=== PATIENT | female | born 1985 | race Caucasian/White ===

== ENCOUNTER 2017-11-27 18:55 | Emergency (ER) | payer SELFPAY ==
[2017-11-27] MEDS ORDERED: KETOROLAC TROMETHAMINE 60 MG/2 ML SDV IM ONE (22:41)
[2017-11-27 22:49] LABS: APPEARANCE,URINE SLIGHTLY-CLOUDY; BILIRUBIN,URINE NEGATIVE (NEGATIVE); COLOR,URINE YELLOW; GLUCOSE, URINE NEGATIVE (NEGATIVE); KETONES,URINE NEGATIVE (NEGATIVE); LEUKOCYTE ESTERASE,URINE MODERATE (NEGATIVE); NITRITE,URINE NEGATIVE (NEGATIVE); PROTEIN,URINE NEGATIVE (NEGATIVE); URINE SPECIFIC GRAVITY 1.021; UROBILINOGEN,URINE NEGATIVE mg/dL (<2.0)
[2017-11-27] MEDS ORDERED: PHENAZOPYRIDINE HCL 200 MG TABLET PO ONE (23:23)
[2017-11-27] MEDS ORDERED: CEPHALEXIN 500 MG CAPSULE PO ONE (23:23)
[2017-11-27] MEDS ORDERED: HYDROCODONE/ACETAMINOPHEN 5-325 MG (6 TAB/ER DISP) PO PRN (23:27)
--- NOTE | 2017-11-27 23:27 | ER Document Report ---
ED General - General Chief Complaint: Urinary Problem Stated Complaint: URINARY PAIN/HEADACHE Time Seen by Provider: 11/27/17 21:08 Mode of Arrival: Ambulatory Information source: Patient Notes: Patient is an otherwise healthy 32-year-old female who presents with dysuria 3 days. Patient also reports intermittent headache for the last 2 days. Patient reports that the headache feels like 1 of her typical headaches, states she took Tylenol a few times with some relief. Patient currently rates headache 1 out of 5 on the pain scale. Patient reports that she has a history of urinary tract infections and that her dysuria feels similar to this. Patient denies any fever, nausea, vomiting or diarrhea. TRAVEL OUTSIDE OF THE [place] IN LAST 30 DAYS: No - Related Data Allergies/Adverse Reactions: No Known Allergies Allergy (Unverified 01/27/11 12:57) Past Medical History - General Information source: Patient - Social History Smoking Status: Never Smoker Chew tobacco use (# tins/day): No Frequency of alcohol use: None Drug Abuse: None Family History: Reviewed & Not Pertinent Patient has suicidal ideation: No Patient has homicidal ideation: No - Medical History Medical History: Negative Renal/ Medical History: Denies: Hx Peritoneal Dialysis Surgical Hx: Negative - Immunizations Hx Diphtheria, Pertussis, Tetanus Vaccination: Yes Review of Systems - Review of Systems Constitutional: No symptoms reported EENT: No symptoms reported Cardiovascular: No symptoms reported Respiratory: No symptoms reported Gastrointestinal: No symptoms reported Genitourinary: No symptoms reported Female Genitourinary: See HPI Musculoskeletal: No symptoms reported Skin: No symptoms reported Hematologic/Lymphatic: No symptoms reported Neurological/Psychological: Headaches Physical Exam - Vital signs Vitals: Temp Pulse Resp BP Pulse Ox 99.0 F 83 16 127/81 H 98 11/27/17 19:11 11/27/17 19:11 11/27/17 19:11 11/27/17 19:11 11/27/17 19:11 - Notes Notes: PHYSICAL EXAMINATION: GENERAL: Well-appearing, well-nourished and in no acute distress. HEAD: Atraumatic, normocephalic. EYES: Pupils equal round extraocular movements intact, conjunctiva are normal. ENT: Nares patent NECK: Normal range of motion LUNGS: No respiratory distress ABD: Abdomen soft, nontender. Musculoskeletal: Normal range of motion NEUROLOGICAL: Normal speech, normal gait. PSYCH: Normal mood, normal affect. SKIN: Warm, Dry, normal turgor, no rashes or lesions noted. Course - Re-evaluation Re-evalutation: Patient was given 60 mg of Toradol IM for her low back pain and headache. Patient has complete resolution of her symptoms after medication. Urinalysis reveals small blood and moderate leukocyte esterase. Patient will be placed on Keflex and Pyridium and will be discharged home in stable condition. Patient is agreeing to this plan of care. Urine will be sent for culture. - Vital Signs Vital signs: Temp Pulse Resp BP Pulse Ox 97.6 F 81 13 105/60 98 11/27/17 23:37 11/27/17 23:37 11/27/17 23:37 11/27/17 23:37 11/27/17 23:37 - Laboratory Laboratory results interpreted by me: 11/27/17 21:14 Urine Blood SMALL H Ur Leukocyte Esterase MODERATE H Discharge - Discharge Clinical Impression: Urinary tract infection Qualifiers: Urinary tract infection type: site unspecified Hematuria presence: without hematuria Qualified Code(s): N39.0 - Urinary tract infection, site not specified Condition: Stable Disposition: HOME, SELF-CARE Additional Instructions: URINARY TRACT INFECTION: Your evaluation indicates that you have a urinary tract infection. This is due to germs growing in the bladder. This is a common problem. This infection usually responds quickly to antibiotics. Your antibiotic should be taken exactly as prescribed. Drink plenty of fluids -- three to four quarts a day. Occasionally, a bladder anesthetic will be prescribed to help stop the feeling of urgency until the antibiotic has a chance to clear the infection. This may cause your urine to be dark orange. Certain urine infections require a culture. If the doctor obtained a culture, the results will be back in two days. You should call to see if a change in treatment is needed. A repeat urinalysis after you finish treatment is often recommended. The physician will let you know if further testing is required. Call the doctor if you develop fever, chills, flank pain, inability to urinate, or blood in the urine. ANTIBIOTIC THERAPY: You have been given an antibiotic prescription. It's important that you take all the medication, unless instructed otherwise by your physician. Failure to complete the entire course can result in relapse of your condition. Common side effects of antibiotics include nausea, intestinal cramping, or diarrhea. Women may develop vaginal yeast infections, and babies can get yeast (thrush) in the mouth following the use of antibiotics. Contact your physician if you develop significant side effects from this medication. Allergy to this antibiotic can result in hives, wheezing, faintness, or itching. If symptoms of allergy occur, stop the medication and call the doctor. CEPHALEXIN: The antibiotic you've been prescribed is a member of the cephalosporin class. This type of antibiotic covers a wide variety of infections, including those of the skin, lungs, and urinary tract. It's useful for staph infections. This antibiotic is slightly similar to the penicillin family. In rare cases , a person who is allergic to penicillin will also be allergic to this medication. If you have had a severe allergic reaction to penicillin, and have not taken this antibiotic since that time, notify your doctor. Antibiotics which cover many germs ("broad spectrum" antibiotics) are more likely to cause diarrhea or "yeast" infections. Women prone to vaginal yeast problems may suffer an attack after taking this antibiotic. In infants, oral thrush (white spots "stuck" on the cheek) or yeast diaper rash may result. See your doctor if these problems occur. Call at once if you develop itching, hives , shortness of breath, or lightheadedness. URINARY ANESTHETIC AGENT: You have been given a medication (Pyridium) for urinary tract discomfort. This medicine numbs the lining of the bladder and urethra, resulting in less pain, burning, and urgency. You may take it as needed, according to instructions. When the symptoms resolve, you can stop this medication (be sure to continue any other medications the doctor has given you). This medicine turns the urine a dark orange. It may stain underwear. Occasionally, it can cause nausea. Return for evaluation if there are any unexpected effects, such as itching, hives, or shortness of breath. FOLLOW-UP CARE: If you have been referred to a physician for follow-up care, call the physician s office for an appointment as you were instructed or within the next two days. If you experience worsening or a significant change in your symptoms, notify the physician immediately or return to the Emergency Department at any time for re-evaluation. We have sent your urine down for a culture, we will call you if the results are abnormal. Prescriptions: Cephalexin Monohydrate [Keflex 500 mg Capsule] 500 mg PO Q6H 5 Days #20 capsule Referrals: MATTEO OLMOS MD [Primary Care Provider] - Follow up as needed
[2017-11-27 23:39] VITALS: BP 105/60
== END 2017-11-27 23:39 | disposition home or self-care (01) ==
LOC: ER 18:55
DX: N39.0 Urinary tract infection, site not specified (principal); R51 Headache; M54.5 Low back pain
CPT/HCPCS: 99283; 96372; 87086; 87088; 81001; 87186; J1885; J3490

== ENCOUNTER 2019-11-25 03:12 | Inpatient (IN) | payer MEDICAID ==
[2019-11-25] MEDS ORDERED: MISOPROSTOL 0.2 MG TABLET ONE (03:53)
[2019-11-25] MEDS ORDERED: LIDOCAINE 1% INJ-PF (10 MG/ML) 30 ML SDV ONE (03:53)
[2019-11-25] MEDS ORDERED: OXYTOCIN 10 UNIT/ML VIAL ONE (03:53)
[2019-11-25] MEDS ORDERED: OXYTOCIN/0.9 % SODIUM CHLORIDE 30 UNIT/500 ML RTUINJ ONE (03:53)
[2019-11-25] MEDS ORDERED: RINGERS SOLUTION,LACTATED 1,000 ML IV ONE (04:11)
[2019-11-25] MEDS ORDERED: RINGERS SOLUTION,LACTATED 1,000 ML IV PRN (04:11)
[2019-11-25 04:17] LABS: APPEARANCE,URINE CLOUDY; BILIRUBIN,URINE NEGATIVE (NEGATIVE); COLOR,URINE YELLOW; GLUCOSE, URINE NEGATIVE (NEGATIVE); KETONES,URINE 20 mg/dL (NEGATIVE); LEUKOCYTE ESTERASE,URINE NEGATIVE (NEGATIVE); NITRITE,URINE NEGATIVE (NEGATIVE); PROTEIN,URINE NEGATIVE (NEGATIVE); URINE SPECIFIC GRAVITY 1.015; UROBILINOGEN,URINE NEGATIVE mg/dL (<2.0)
[2019-11-25 04:36] LABS: URINE AMPHETAMINES SCREEN NEGATIVE; URINE BARBITURATES SCREEN NEGATIVE; URINE BENZODIAZEPINES SCREEN NEGATIVE; URINE COCAINE SCREEN NEGATIVE; URINE MARIJUANA (THC) SCREEN NEGATIVE; URINE METHADONE SCREEN NEGATIVE; URINE PHENCYCLIDINE SCREEN NEGATIVE
[2019-11-25 05:12] LABS: ABSOLUTE LYMPHOCYTES (AUTO) 1.2 10^3/uL (0.5-4.7); ABSOLUTE MONOCYTES (AUTO) 0.7 10^3/uL (0.1-1.4); ABSOLUTE NEUT (AUTO) 7.9 10^3/uL (1.7-8.2); BASOPHILS % (AUTO) 0.3 % (0-2); EOSINOPHILS % (AUTO) 0.4 % (0-6); HEMATOCRIT 35.9 % (36.0-47.0); HEMOGLOBIN 12.5 g/dL (12.0-15.5); MEAN CORPUSCULAR HEMOGLOBIN 30.4 pg (27.0-33.4); MEAN CORPUSCULAR HGB CONC 34.7 g/dL (32.0-36.0); MEAN CORPUSCULAR VOLUME 88 fl (80-97); PLATELET COUNT 242 10^3/uL (150-450); SEGMENTED NEUTROPHILS % (AUTO) 80.3 % (42-78); TOTAL CELLS COUNTED % (AUTO) 100 %; WHITE BLOOD COUNT 9.9 10^3/uL (4.0-10.5)
--- NOTE | 2019-11-25 05:21 | Admission Physical ---
Datetime Report Generated by CPN: 11/25/2019 05:21 CURRENT ADMISSION Chief Complaint: Uterine Contractions Admit Impression : Term, Intrauterine ; Active Labor Admit Plan: Admit to Unit; Initiate Labor Protocol ALLERGIES Medication Allergies: Yes Medication Allergies: No Known Allergies (11/25/2019) Latex: Unknown OBSTETRICAL HISTORY EDC: 11/26/2019 00:00 : 4 Para: 3 Term: 3 : 0 SAB: 0 IAB: 0 Ectopic: 0 Livin Cesareans: 0 VBACs: 0 Multiple Births: 0 Gestational Diabetes: Yes Rh Sensitization: No Incompetent Cervix: No AKILA: No Infertility: No ART Treatment: No Uterine Anomaly: No IUGR: No Hx Previous C/S: No Macrosomia: No Hx Loss/Stillborn: No PIH: No Hx : No Placenta Previa/Abruption: No Depression/PP Depression: No PTL/PROM: No Post Hemorrhage: No Current Procedures: Ultrasound Obstetrical History Comments: G1 July 2009 NVSD G2 Jan 2011 NVSD G3 May 2015 G4 current pregancy Gestastional Diabetes SEE RECORDS Alcohol: No Marijuana : No Cocaine: No Other Illicit Drugs: No Cigarettes: Former Smoker. 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: No Heart Disease: No Hosp/Surgery: Yes Autoimmune Disorder: No Anesthetic Complications: No Kidney Disease: No Abnormal Pap Smear: No Neuro/Epilepsy: No Psychiatric Disorders: No Other Medical Diseases: No Hepatitis/Liver Disease: No Significant Family History: No Varicosities/Phlebitis: No Trauma/Violence : No Thyroid Dysfunction: No INFECTIOUS HISTORY Gonorrhea: No Genital Herpes: No Chlamydia: No Tuberculosis: No Syphilis: No Hepatitis: No HIV/AIDS Exposure: No Rash or Viral Illness: No HPV: No PHYSICAL EXAM General: Normal HEENT: Normal Neurologic: Normal Thyroid: Normal Heart: Normal Lungs: Normal Breast: Normal Back: Normal Abdomen: Normal Genitourinary Exam: Normal Extremities: Normal DTRs: Normal Pelvic Type: Adequate Vital Signs: Reviewed; Within Normal Limits VAGINAL EXAM Dilatation: 5 Effacement: 70 Station: -2 Contraction Comments: regular painful contractions MEMBRANES Membranes: Intact FETUS A EGA: 39.6 Monitoring: External US FHR- Baseline: 155 Variability: Moderate 6-25bpm Accelerations: 15X15 Decelerations: None FHR Category: Category I Presentation: Vertex Admit Comment: at 39.5 wks EGA in active labor -Admit to LDR _NPO and IVFs -CEFM and toco -GBS negative -History 3 prior -anticipate -Desires natrual labor PLANS FOR LABOR AND DELIVERY Labor and Delivery: None Pain Management: Medications; Epidural Feeding Preference: Both Benefit of Breast Feed Discussed: Yes Circumcision: N/A INFORMED CONSENT Informed Consent Obtained: Vaginal Delivery; Risks, Benefits and Alternatives Discussed Signature: with User ID: John : with User ID: [email or web address]
[2019-11-25] MEDS ORDERED: PROMETHAZINE HCL INJ 25 MG/1 ML VIAL IV PRN (06:21)
[2019-11-25] MEDS ORDERED: MEASLES,MUMPS&RUBELLA VACC/PF 0.5 ML VIAL SUBCUT PRN (06:21)
[2019-11-25] MEDS ORDERED: DIPH/PERTUSS(ACELL)/TETANUS VAC/PF 0.5 ML SYR (>=10YO) IM PRN (06:21)
[2019-11-25] MEDS ORDERED: OXYTOCIN/0.9 % SODIUM CHLORIDE 30 UNIT/500 ML RTUINJ IV PRN (06:21)
[2019-11-25] MEDS ORDERED: ZOLPIDEM TARTRATE 5 MG TABLET PO PRN (06:21)
[2019-11-25] MEDS ORDERED: DIPHENHYDRAMINE HCL 25 MG CAPSULE PO PRN (06:21)
[2019-11-25] MEDS ORDERED: ACETAMINOPHEN 650 MG SUPP.RECT PR PRN (06:21)
[2019-11-25] MEDS ORDERED: PROMETHAZINE HCL 25 MG TABLET PO PRN (06:21)
[2019-11-25] MEDS ORDERED: GLYCERIN/WITCH HAZEL LEAF 1 EACH MED..WIPE TP PRN (06:21)
[2019-11-25] MEDS ORDERED: DIBUCAINE 1% OINTMENT 28 GM TP PRN (06:21)
[2019-11-25] MEDS ORDERED: NA PHOS,M-B/NA PHOS,DI-BA (ADULT) 133 ML ENEMA PR PRN (06:21)
[2019-11-25] MEDS ORDERED: ACETAMINOPHEN WITH CODEINE #3 TABLET PO PRN ×2 (06:21)
[2019-11-25] MEDS ORDERED: BENZOCAINE/MENTHOL AEROSOL SPRAY 56 ML TOP PRN (06:21)
[2019-11-25] MEDS ORDERED: PSEUDOEPHEDRINE HCL 30 MG TABLET PO PRN (06:21)
[2019-11-25] MEDS ORDERED: PROMETHAZINE HCL 25 MG SUPP.RECT PR PRN (06:21)
[2019-11-25] MEDS ORDERED: MAGNESIUM HYDROXIDE SUSP 30 ML UDCUP PO PRN (06:21)
[2019-11-25] MEDS ORDERED: IBUPROFEN 800 MG TABLET ONE (07:45)
[2019-11-25] MEDS: IBUPROFEN 800 MG TABLET PO SCH ×3 (07:47→22:09)
--- NOTE | 2019-11-25 08:36 | Delivery Summary ---
Del Sum A-C Datetime Report Generated by CPN: 11/25/2019 08:35 DELIVERY PERSONNEL DELIVERY PERSONNEL: [id number] Delivery Doctor:: Brenna Gonzalez MD Labor and Delivery Nurse:: Calli Reed RNcellar supervisor Nurse:: Socorro Yarbrough RNC Unloading Checker/TEAM DRIVER: Niniher March, ST Unloading Checker/TEAM DRIVER: Nini Ross, ST MATERNAL INFORMATION Delivery Anesthesia: None Medications After Delivery: Pitocin 30 Units in 500ml NS/D5W Estimated Blood Loss (ml): 150 Delivery QBL: 200 Maternal Complications: None Provider Comments: Called to patients room as she was complete [facility] urge to push. Pushed through 2 contractions and viable female delivered over intact perineum. After delivery of the head a loose nuchal cord x1 was noted and reduced. The posterior arm (right) then delivered. The shoulders and rest of body followed easily. vigorously crying. Cord clamping delayed for 30 seconds. After cord clamped and cut infant placed chest to chest with Mother. Both and mother stable LABOR SUMMARY EDC: 11/26/2019 00:00 No. Babies in Womb: 1 Attempted: No Labor Anesthesia: None LABOR INFORMATION Reason for Induction: Not Applicable Onset of Labor: 11/25/2019 02:00 Complete Dilatation: 11/25/2019 06:05 Oxytocin: N/A Group B Beta Strep: Negative Antibiotics # of Doses: 0 Antibiotics Time of Last Dose: 0 Name of Antibiotic Given: 0 Steroids Given: None Reason Steroids Not Administered: Not Applicable MEMBRANES Membranes Rupture Method: Artificial Rupture of Membranes: 11/25/2019 05:31 Length of Rupture (hr): 0.65 Amniotic Fluid Color: Clear Amniotic Fluid Amount: Moderate Amniotic Fluid Odor: Normal STAGES OF LABOR Stage 1 hr: 4 Stage 1 min: 5 Stage 2 hr: 0 Stage 2 min: 5 Stage 3 hr: 0 Stage 3 min: 3 Total Time in Labor hr: 4 Total Time in Labor min: 13 VAGINAL DELIVERY Episiotomy: None Laceration #1: None Laceration Extension #1: N/A Laceration Repair: Not Applicable Sponge Count Correct: Yes Sharps Count Correct: Yes BABY A INFORMATION Infant Delivery Date/Time: 11/25/2019 06:10 Method of Delivery: Vaginal Nurse Controlled Delivery: No Born in Route : No : N/A Forceps: N/A Vacuum Extraction: N/A Shoulder Dystocia : No PRESENTATION/POSITION BABY A Presentation: Cephalic Cephalic Presentation: Vertex Vertex Position: Right Occipital Anterior Breech Presentation: N/A PLACENTA INFORMATION BABY A Placenta Delivery Time : 11/25/2019 06:13 Placenta Method of Delivery: Spontaneous Placenta Status: Delivered SCORES BABY A Heart Rate 1 min: >100 bpm Resp Effort 1 min: Good Cry Reflex Irritability 1 min: Cough or Sneeze or Pulls Away Muscle Tone 1 min: Active Motion Color 1 min: Body [place], Extremities Blue Resuscitation Effort 1 min: Tactile Stimulation SCORE 1 MIN: 9 Heart Rate 5 min: >100 bpm Resp Effort 5 min: Good Cry Reflex Irritability 5 min: Cough or Sneeze or Pulls Away Muscle Tone 5 min: Active Motion Color 5 min: Body [place], Extremities Blue Resuscitation Effort 5 min: Tactile Stimulation SCORE 5 MIN: 9 INFORMATION BABY A Gestational Age at Delivery: 39.6 Gestational Status: Full Term- 39- 40.6 Weeks Outcome : Liveborn Condition : Stable Sex: Female IDENTIFICATION BABY A Infant Verification Date/Time: 11/25/2019 06:17 ID Band Number: [id number] Mother's Name Verified: Yes RN Verifying Infant: Linda Vazquez, RN and K. Parminder, RN WEIGHT/LENGTH BABY A Birthweight (gm): 3200 Weight (lb): 7 Infant Weight (oz): 1 Infant Length (in): 19.75 Infant Length (cm): 50.17 CORD INFORMATION BABY A No. Cord Vessels: 3 Nuchal Cord : Around Neck x1, Loose Cord Blood Taken: Yes-For Eval (Mom's Blood Type - or O+) Suction: Mouth ASSESSMENT BABY A Complications: None Physical Findings at Delivery: Within Normal Limits Infant Respirations: Appears Normal Skin to Skin: Yes Upholstery Parts Sorter/ALS Called : No Infant Care By: D Bellavancomi RN Transferred To: Remains with Mother BABY B INFORMATION : N/A SIGNATURES Signature: with User ID: [email or web address] : with User ID: John
[2019-11-25] MEDS: PRENATAL VITAMIN W DHA CAPSULE PO SCH (09:57)
[2019-11-25] MEDS: DOCUSATE SODIUM 100 MG CAPSULE PO SCH ×2 (09:57→17:00)
[2019-11-25] MEDS: SENNOSIDES/DOCUSATE 8.6-50 MG 1 EACH TABLET PO SCH (09:58)
[2019-11-25] MEDS: FAMOTIDINE 20 MG TABLET PO SCH ×2 (09:58→22:09)
[2019-11-25] MEDS: FERROUS SULFATE 325 MG TABLET PO SCH ×2 (09:58→17:00)
[2019-11-26] MEDS: IBUPROFEN 800 MG TABLET PO SCH ×3 (06:23→22:19)
[2019-11-26 08:09] LABS: HEMATOCRIT 32.1 % (36.0-47.0); MEAN CORPUSCULAR HEMOGLOBIN 30.5 pg (27.0-33.4); MEAN CORPUSCULAR HGB CONC 34.3 g/dL (32.0-36.0); MEAN CORPUSCULAR VOLUME 89 fl (80-97); PLATELET COUNT 215 10^3/uL (150-450); RED BLOOD COUNT 3.61 10^6/uL (3.72-5.28); RED CELL DISTRIBUTION WIDTH 13.8 % (11.5-14.0)
[2019-11-26] MEDS: FERROUS SULFATE 325 MG TABLET PO SCH ×2 (09:47→17:41)
[2019-11-26] MEDS: FAMOTIDINE 20 MG TABLET PO SCH ×2 (09:47→22:19)
[2019-11-26] MEDS: PRENATAL VITAMIN W DHA CAPSULE PO SCH (09:47)
[2019-11-26] MEDS: DOCUSATE SODIUM 100 MG CAPSULE PO SCH ×2 (09:47→17:41)
[2019-11-26] MEDS: SENNOSIDES/DOCUSATE 8.6-50 MG 1 EACH TABLET PO SCH (09:47)
--- NOTE | 2019-11-26 12:49 | PDOC PROGRESS REPORT ---
Subjective-OB Progress Note for:: 11/26/19 Subjective: Pt doing well, no concerns. She reports light bleeding, reg diet and voiding w/o difficulty. Physical Exam (OB) Vital Signs: Temp Pulse Resp BP Pulse Ox 97.8 F 81 18 117/65 99 11/26/19 08:17 11/26/19 08:17 11/26/19 08:17 11/26/19 08:17 11/26/19 08:17 Intake & Output 11/25/19 11/26/19 11/27/19 06:59 06:59 06:59 Intake Total 420 Balance 420 Weight 93.2 kg - Maternal Morbidity Maternal Morbidity (serious complications experinced by the mother associated with labor and delivery: None of the above - Lochia Lochia Amount: Scant < 10 ml Lochia Color: Rubra/Red - Abdomen Description: Soft, Round Hernia Present: No Fundal Description: Firm, Midline Fundal Height: u/u - u/2 Objective-Diagnostic Laboratory: 11/26/19 06:57 11/26/19 06:57 WBC 9.0 RBC 3.61 L Hgb 11.0 L Hct 32.1 L MCV 89 MCH 30.5 MCHC 34.3 RDW 13.8 Plt Count 215 Assessment and Plan(PN) - Assessment and Plan (1) Normal course Is this a current diagnosis for this admission?: Yes (2) Vaginal delivery Is this a current diagnosis for this admission?: Yes - Time Spent with Patient Time with patient: Less than 15 minutes Medications reviewed and adjusted accordingly: Yes - Disposition Anticipated Discharge Disposition: Home, Self Care Anticipated Discharge Timeframe: within 24 hours
[2019-11-27] MEDS: IBUPROFEN 800 MG TABLET PO SCH (05:38)
[2019-11-27] MEDS: DOCUSATE SODIUM 100 MG CAPSULE PO SCH (10:02)
[2019-11-27] MEDS: PRENATAL VITAMIN W DHA CAPSULE PO SCH (10:02)
[2019-11-27] MEDS: SENNOSIDES/DOCUSATE 8.6-50 MG 1 EACH TABLET PO SCH (10:02)
[2019-11-27] MEDS: FERROUS SULFATE 325 MG TABLET PO SCH (10:02)
[2019-11-27] MEDS: FAMOTIDINE 20 MG TABLET PO SCH (10:02)
--- NOTE | 2019-11-27 11:51 | PDOC DISCHARGE SUMMARY ---
Impression - Admit/DC Date/PCP Admission Date/Primary Care Provider: 11/25/19 03:53 MATTEO OLMOS MD Discharge Date: 11/27/19 - Discharge Diagnosis (1) Gestational diabetes mellitus (GDM) affecting fourth Is this a current diagnosis for this admission?: Yes (2) Normal course Is this a current diagnosis for this admission?: Yes (3) Vaginal delivery Is this a current diagnosis for this admission?: Yes - Assessment Summary: 34yo G1 now P1 s/p ppd 2 stable and ready for discharge understands warning s/s and when to rtc/[facility] - Additional Information Resuscitation Status: Full Code Discharge Diet: As Tolerated, Regular Discharge Activity: Activity As Tolerated, Balance Activity w/Rest, No Lifting Over 10 Pounds, Pelvic Rest, No tub bath, Walk Frequently Referrals: MATTEO OLMOS MD [Primary Care Provider] - Prescriptions: Ibuprofen [Motrin 800 mg Tablet] 800 mg PO Q8HP PRN #20 tablet PRN Reason: Abdominal Cramping Home Medications: Vit/Iron Fum/Folic AC [ Tablet] 1 tab PO DAILY 05/30/15 Ibuprofen [Motrin 800 mg Tablet] 800 mg PO Q8HP PRN #20 tablet 11/27/19 Hospital Course 59. Maternal Morbidity (serious complications experinced by the mother associated with labor and delivery: None of the above Results Laboratory Results: WBC 9.0 10^3/uL (4.0-10.5) 11/26/19 06:57 RBC 3.61 10^6/uL (3.72-5.28) L 11/26/19 06:57 Hgb 11.0 g/dL (12.0-15.5) L 11/26/19 06:57 Hct 32.1 % (36.0-47.0) L 11/26/19 06:57 MCV 89 fl (80-97) 11/26/19 06:57 MCH 30.5 pg (27.0-33.4) 11/26/19 06:57 MCHC 34.3 g/dL (32.0-36.0) 11/26/19 06:57 RDW 13.8 % (11.5-14.0) 11/26/19 06:57 Plt Count 215 10^3/uL (150-450) 11/26/19 06:57 Lymph % (Auto) 12.0 % (13-45) L 11/25/19 05:08 [place] % (Auto) 7.0 % (3-13) 11/25/19 05:08 Eos % (Auto) 0.4 % (0-6) 11/25/19 05:08 Baso % (Auto) 0.3 % (0-2) 11/25/19 05:08 Absolute Neuts (auto) 7.9 10^3/uL (1.7-8.2) 11/25/19 05:08 Absolute Lymphs (auto) 1.2 10^3/uL (0.5-4.7) 11/25/19 05:08 Absolute Monos (auto) 0.7 10^3/uL (0.1-1.4) 11/25/19 05:08 Absolute Eos (auto) 0.0 10^3/uL (0.0-0.6) 11/25/19 05:08 Absolute Basos (auto) 0.0 10^3/uL (0.0-0.2) 11/25/19 05:08 Seg Neutrophils % 80.3 % (42-78) H 11/25/19 05:08 Urine Color YELLOW 11/25/19 03:20 Urine Appearance CLOUDY 11/25/19 03:20 Urine pH 6.0 (5.0-9.0) 11/25/19 03:20 Ur Specific [place] 1.015 11/25/19 03:20 Urine Protein NEGATIVE mg/dL (NEGATIVE) 11/25/19 03:20 Urine Glucose (UA) NEGATIVE mg/dL (NEGATIVE) 11/25/19 03:20 Urine Ketones 20 mg/dL (NEGATIVE) H 11/25/19 03:20 Urine Blood SMALL (NEGATIVE) H 11/25/19 03:20 Urine Nitrite NEGATIVE (NEGATIVE) 11/25/19 03:20 Urine Bilirubin NEGATIVE (NEGATIVE) 11/25/19 03:20 Urine Urobilinogen NEGATIVE mg/dL (<2.0) 11/25/19 03:20 Ur Leukocyte Esterase NEGATIVE (NEGATIVE) 11/25/19 03:20 Urine Ascorbic Acid NEGATIVE (NEGATIVE) 11/25/19 03:20 Urine Opiates Screen NEGATIVE 11/25/19 03:20 Urine Methadone Screen NEGATIVE 11/25/19 03:20 Ur Barbiturates Screen NEGATIVE 11/25/19 03:20 Ur Phencyclidine Scrn NEGATIVE 11/25/19 03:20 Ur Amphetamines Screen NEGATIVE 11/25/19 03:20 U Benzodiazepines Scrn NEGATIVE 11/25/19 03:20 Urine Cocaine Screen NEGATIVE 11/25/19 03:20 U Marijuana (THC) Screen NEGATIVE 11/25/19 03:20 RPR NONREACTIVE (NONREACTIVE) 11/25/19 05:08 Blood Type O POSITIVE 11/25/19 05:08 Antibody Screen NEGATIVE 11/25/19 05:08
[2019-11-27 12:55] VITALS: BP 119/62
--- NOTE | 2019-12-11 15:30 | PDOC DISCHARGE SUMMARY ---
Impression - Admit/DC Date/PCP Admission Date/Primary Care Provider: 11/25/19 03:53 MATTEO OLMOS MD Discharge Date: 11/27/19 - Discharge Diagnosis (1) Gestational diabetes mellitus (GDM) affecting fourth Is this a current diagnosis for this admission?: Yes (2) Normal course Is this a current diagnosis for this admission?: Yes (3) Vaginal delivery Is this a current diagnosis for this admission?: Yes - Assessment Summary: 34yo G1 now P1 s/p ppd 2 stable and ready for discharge understands warning s/s and when to rtc/[facility] - Additional Information Resuscitation Status: Full Code Discharge Diet: As Tolerated, Regular Discharge Activity: Activity As Tolerated, Balance Activity w/Rest, No Lifting Over 10 Pounds, Pelvic Rest, No tub bath, Walk Frequently Referrals: MATTEO OLMOS MD [Primary Care Provider] - (Please call and schedule apt for 4-6 weeks) Prescriptions: Ibuprofen [Motrin 800 mg Tablet] 800 mg PO Q8HP PRN #20 tablet PRN Reason: Abdominal Cramping Home Medications: Vit/Iron Fum/Folic AC [ Tablet] 1 tab PO DAILY 05/30/15 Ibuprofen [Motrin 800 mg Tablet] 800 mg PO Q8HP PRN #20 tablet 11/27/19 Additional Information: Pt was diet controlled GDM Hospital Course 59. Maternal Morbidity (serious complications experinced by the mother associated with labor and delivery: None of the above Results Laboratory Results: WBC 9.0 10^3/uL (4.0-10.5) 11/26/19 06:57 RBC 3.61 10^6/uL (3.72-5.28) L 11/26/19 06:57 Hgb 11.0 g/dL (12.0-15.5) L 11/26/19 06:57 Hct 32.1 % (36.0-47.0) L 11/26/19 06:57 MCV 89 fl (80-97) 11/26/19 06:57 MCH 30.5 pg (27.0-33.4) 11/26/19 06:57 MCHC 34.3 g/dL (32.0-36.0) 11/26/19 06:57 RDW 13.8 % (11.5-14.0) 11/26/19 06:57 Plt Count 215 10^3/uL (150-450) 11/26/19 06:57 Lymph % (Auto) 12.0 % (13-45) L 11/25/19 05:08 [place] % (Auto) 7.0 % (3-13) 11/25/19 05:08 Eos % (Auto) 0.4 % (0-6) 11/25/19 05:08 Baso % (Auto) 0.3 % (0-2) 11/25/19 05:08 Absolute Neuts (auto) 7.9 10^3/uL (1.7-8.2) 11/25/19 05:08 Absolute Lymphs (auto) 1.2 10^3/uL (0.5-4.7) 11/25/19 05:08 Absolute Monos (auto) 0.7 10^3/uL (0.1-1.4) 11/25/19 05:08 Absolute Eos (auto) 0.0 10^3/uL (0.0-0.6) 11/25/19 05:08 Absolute Basos (auto) 0.0 10^3/uL (0.0-0.2) 11/25/19 05:08 Seg Neutrophils % 80.3 % (42-78) H 11/25/19 05:08 Urine Color YELLOW 11/25/19 03:20 Urine Appearance CLOUDY 11/25/19 03:20 Urine pH 6.0 (5.0-9.0) 11/25/19 03:20 Ur Specific [place] 1.015 11/25/19 03:20 Urine Protein NEGATIVE mg/dL (NEGATIVE) 11/25/19 03:20 Urine Glucose (UA) NEGATIVE mg/dL (NEGATIVE) 11/25/19 03:20 Urine Ketones 20 mg/dL (NEGATIVE) H 11/25/19 03:20 Urine Blood SMALL (NEGATIVE) H 11/25/19 03:20 Urine Nitrite NEGATIVE (NEGATIVE) 11/25/19 03:20 Urine Bilirubin NEGATIVE (NEGATIVE) 11/25/19 03:20 Urine Urobilinogen NEGATIVE mg/dL (<2.0) 11/25/19 03:20 Ur Leukocyte Esterase NEGATIVE (NEGATIVE) 11/25/19 03:20 Urine Ascorbic Acid NEGATIVE (NEGATIVE) 08/10/20 03:20 Urine Opiates Screen NEGATIVE 11/25/19 03:20 Urine Methadone Screen NEGATIVE 11/25/19 03:20 Ur Barbiturates Screen NEGATIVE 11/25/19 03:20 Ur Phencyclidine Scrn NEGATIVE 11/25/19 03:20 Ur Amphetamines Screen NEGATIVE 11/25/19 03:20 U Benzodiazepines Scrn NEGATIVE 11/25/19 03:20 Urine Cocaine Screen NEGATIVE 11/25/19 03:20 U Marijuana (THC) Screen NEGATIVE 11/25/19 03:20 RPR NONREACTIVE (NONREACTIVE) 11/25/19 05:08 Blood Type O POSITIVE 11/25/19 05:08 Antibody Screen NEGATIVE 11/25/19 05:08
== END 2019-11-27 13:21 | disposition home or self-care (01) | DRG 807 ==
LOC: LC 03:12 → LR 03:53 → 2S 08:43
PROVIDERS: ADMIT Obstetrics & Gynecology; ATTEND Obstetrics & Gynecology
PROC: 10E0XZZ Delivery of Products of Conception, External Approach (ICD-10-PCS; principal; 2019-11-25)
PROC: 10907ZC Drainage of Amniotic Fluid, Therapeutic from Products of Conception, Via Natural or Artificial Opening (ICD-10-PCS; 2019-11-25)
DX: O24.425 Gestational diabetes mellitus in childbirth, controlled by oral hypoglycemic drugs (principal); Z37.0 Single live birth; O69.81X0 Labor and delivery complicated by cord around neck, without compression, not applicable or unspecified; Z11.59 Encounter for screening for other viral diseases; Z87.891 Personal history of nicotine dependence; Z3A.39 39 weeks gestation of pregnancy
CPT/HCPCS: 36415; 80307; 81005; 85025; 85027; 86592; 86850; 86900; 86901; J2590; J3490